=== PATIENT | male | born 1990 | race African-American/Black ===

== ENCOUNTER 2018-10-26 11:23 | Emergency (ER) | payer OTHER ==
[~2018-10-26] VITALS: Ht 188 cm; Wt 93.0 kg
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
[2018-10-26] MEDS ORDERED: NAPR-1071 PO (13:10)
[2018-10-26] MEDS ORDERED: METH-313 PO (13:10)
[2018-10-26 13:19] VITALS: BP 122/81
== END 2018-10-26 13:19 | disposition home or self-care (01) ==
LOC: ER 11:25
DX: S39.012A Strain of muscle, fascia and tendon of lower back, initial encounter (principal); F17.210 Nicotine dependence, cigarettes, uncomplicated; V40.6XXA Car passenger injured in collision with pedestrian or animal in traffic accident, initial encounter
CPT/HCPCS: 72131

== ENCOUNTER 2019-06-08 21:34 | Emergency (ER) | payer SELFPAY ==
[~2019-06-08] VITALS: Ht 188 cm; Wt 89.4 kg
[~2019-06-08 21:34] MED LIST: METH-313 PO; NAPR-1071 PO
[2019-06-08] MEDS ORDERED: HYOSCYAMINE 0.125 MG (LEVSIN) TAB PO ONE (22:00)
--- NOTE | 2019-06-08 22:02 | ED Abdominal Pain ---
General Chief Complaint: Abdominal/GI Problems Stated Complaint: ABD PAIN Nursing Triage Note: constant mid abdominal cramping pain. Sepsis Screen: No Definite Risk Source of Information: Patient History of Present Illness Date Seen by Provider: Jun 08, 2019 Time Seen by Provider: 21:40 Initial Comments PT ARRIVES VIA POV C/O EPIGASTRIC PAIN SINCE 2099 LAST NIGHT--YESTERDAY WAS THANKSGIVING PAIN IS CRAMPING TYPE PAIN , AND COMES AND GOES, AND IS NOT PRESENT NOW NO NAUSEA/VOMITING LAST BM WAS YESTERDAY OR THE DAY BEFORE--PT NORMALLY HAS BM EVERY DAY NO FEVER NO URINARY SYMPTOMS NO RELIEF WITH IBUPROFEN AND BC POWDER TODAY PT HAS NOT EATEN AT ALL TDAY NO HISTORY OF GI PROBLEMS OR PRIOR ABDOMINAL SURGERY PT STATES HE DID USE ECSTASY YESTERDAY, AND USES ON FAIRLY REGULAR BASIS, AND HAS NOT CAUSED GI PROBLEMS IN THE PAST PCP: NONE Allergies and Home Medications Allergies Coded Allergies: No Known Drug Allergies (Unverified , 10/26/18) Home Medications Hyoscyamine Sulfate 0.125 Mg Tab.subl, 1-2 TAB SL Q4H Prescribed by: MANASA LEWIS on 06/08/192357 Pantoprazole Sodium 40 Mg Tablet.dr, 40 MG PO DAILY Prescribed by: MANASA LEWIS on 06/08/19 270 Patient Home Medication List Home Medication List Reviewed: Yes Review of Systems Review of Systems Constitutional: no symptoms reported; No chills, No diaphoresis, No fever EENTM: No Symptoms Reported Respiratory: No Symptoms Reported Cardiovascular: No Symptoms Reported Gastrointestinal: See HPI, Abdominal Pain, Constipated; Denies Nausea; Poor Appetite; Denies Vomiting Genitourinary: No Symptoms Reported Musculoskeletal: no symptoms reported; No back pain Skin: no symptoms reported Psychiatric/Neurological: No Symptoms Reported Endocrine: No Symptoms Reported Hematologic/Lymphatic: No Symptoms Reported Past Xvkkxzs-Tbrmtl-Eazvwa Hx Patient Social History Alcohol Use: Denies Use Recreational Drug Use: Yes (ECSTASY, THC) Drug of Choice: ECSTASY, THC Smoking Status: Current Everyday Smoker (1 PPD) Type Used: Cigarettes (1 PPD) 2nd Hand Smoke Exposure: Yes Recent Foreign Travel: No Contact w/Someone Who Travel: No Recent Infectious Disease Expo: No Recent Hopitalizations: No Physical Abuse: No Sexual Abuse: No Mistreated: No Fear: No Immunizations Up To Date Tetanus Booster (TDap): Unknown Seasonal Allergies Seasonal Allergies: No Past Medical History Surgeries: No Respiratory: No Cardiac: No Neurological: No Genitourinary: No Gastrointestinal: No Musculoskeletal: No Endocrine: No HEENT: No Cancer: No Psychosocial: No Integumentary: No Blood Disorders: No Physical Exam Vital Signs Vital Signs - First Documented 06/08/19 21:36 Temp 36.4 Pulse 82 Resp 18 B/P (MAP) 138/94 (109) Pulse Ox 99 O2 Delivery Room Air Capillary Refill : Less Than 3 Seconds Height/Weight/BMI Height: 6'2.00" Weight: 205lbs. oz. 92.920093ta; 25.00 BMI Method:Stated General Appearance: WD/WN, no apparent distress, other (DOES NOT APPEAR TO BE IN ANY DISCOMFORT OR DISTRESS, WALKS UPRIGHT AND MOVES VERY QUICKLY WITHOUT DIFFICULTY) Neck: normal inspection Respiratory: normal breath sounds, no respiratory distress, no accessory muscle use Cardiovascular: regular rate, rhythm, no edema, no JVD, no murmur Gastrointestinal: normal bowel sounds, non tender, soft, no organomegaly, no pulsatile mass Back: no CVA tenderness Neurologic/Psychiatric: bag sorter II-XII nml as tested, no motor/sensory deficits, alert, normal mood/affect, oriented x 3 Skin: normal color (PT IS BLACK), warm/dry, tattoos/piercings (EXTENSIVE TATTOOS) Progress/Results/Core Measures Results/Orders Lab Results Laboratory Tests Test 06/08/19 21:48 06/08/19 21:55 Range/Units Urine Color YELLOW Urine Clarity CLEAR Urine pH 7.0 5-9 Urine Specific [place] 1.025 H 1.016-1.022 Urine Protein NEGATIVE NEGATIVE Urine Glucose (UA) NEGATIVE NEGATIVE Urine Ketones NEGATIVE NEGATIVE Urine Nitrite NEGATIVE NEGATIVE Urine Bilirubin NEGATIVE NEGATIVE Urine Urobilinogen 0.2 < = 1.0 MG/DL Urine Leukocyte Esterase NEGATIVE NEGATIVE Urine RBC (Auto) NEGATIVE NEGATIVE Urine RBC NONE /HPF Urine WBC NONE /HPF Urine Crystals PRESENT H /LPF Urine Amorphous Sediment MOD YARA PHOSPHATE H /LPF Urine Bacteria NEGATIVE /HPF Urine Casts NONE /LPF Urine Mucus MODERATE H /LPF Urine Culture Indicated NO Urine Opiates Screen NEGATIVE NEGATIVE Urine Oxycodone Screen NEGATIVE NEGATIVE Urine Methadone Screen NEGATIVE NEGATIVE Urine Propoxyphene Screen NEGATIVE NEGATIVE Urine Barbiturates Screen NEGATIVE NEGATIVE Ur Tricyclic Antidepressants Screen NEGATIVE NEGATIVE Urine Phencyclidine Screen NEGATIVE NEGATIVE Urine Amphetamines Screen POSITIVE H NEGATIVE Urine Methamphetamines Screen NEGATIVE NEGATIVE Urine Benzodiazepines Screen NEGATIVE NEGATIVE Urine Cocaine Screen NEGATIVE NEGATIVE Urine Cannabinoids Screen POSITIVE H NEGATIVE White Blood Count 6.2 4.3-11.0 10^3/uL Red Blood Count 5.11 4.35-5.85 10^6/uL Hemoglobin 15.7 13.3-17.7 G/DL Hematocrit 44 40-54 % Mean Corpuscular Volume 86 80-99 FL Mean Corpuscular Hemoglobin 31 25-34 PG Mean Corpuscular Hemoglobin Concent 36 32-36 G/DL Red Cell Distribution Width 14.3 10.0-14.5 % Platelet Count 280 130-400 10^3/uL Mean Platelet Volume 9.8 7.4-10.4 FL Neutrophils (%) (Auto) 57 42-75 % Lymphocytes (%) (Auto) 31 12-44 % Monocytes (%) (Auto) 10 0-12 % Eosinophils (%) (Auto) 1 0-10 % Basophils (%) (Auto) 0 0-10 % Neutrophils # (Auto) 3.5 1.8-7.8 X 10^3 Lymphocytes # (Auto) 2.0 1.0-4.0 X 10^3 Monocytes # (Auto) 0.6 0.0-1.0 X 10^3 Eosinophils # (Auto) 0.1 0.0-0.3 10^3/uL Basophils # (Auto) 0.0 0.0-0.1 10^3/uL Sodium Level 136 135-145 MMOL/L Potassium Level 4.4 3.6-5.0 MMOL/L Chloride Level 102 98-107 MMOL/L Carbon Dioxide Level 25 21-32 MMOL/L Anion Gap 9 5-14 MMOL/L Blood Urea Nitrogen 10 7-18 MG/DL Creatinine 1.17 0.60-1.30 MG/DL Estimat Glomerular Filtration Rate > 60 BUN/Creatinine Ratio 9 Glucose Level 98 70-105 MG/DL Calcium Level 9.6 8.5-10.1 MG/DL Corrected Calcium 9.3 8.5-10.1 MG/DL Total Bilirubin 1.5 H 0.1-1.0 MG/DL Aspartate Amino Transf (AST/SGOT) 14 5-34 U/L Alanine Aminotransferase (ALT/SGPT) 21 0-55 U/L Alkaline Phosphatase 76 40-136 U/L Total Protein 7.4 6.4-8.2 GM/DL Albumin 4.4 3.2-4.5 GM/DL Amylase Level 70 25-125 U/L Lipase 12 8-78 U/L Salicylates Level < 5.0 L 5.0-20.0 MG/DL Serum Alcohol < 10 <10 MG/DL My Orders Orders - MANASA LEWIS DO Ed Iv/Invasive Line Start (06/08/19 21:48) Alcohol (06/08/19 21:48) Amylase (06/08/19 21:48) Cbc With Automated Diff (06/08/19 21:48) Comprehensive Metabolic Panel (06/08/19 21:48) Drug Screen Stat (Urine) (06/08/19 21:48) Lipase (06/08/19 21:48) Salicylate (06/08/19 21:48) Ua Culture If Indicated (06/08/19 21:48) Ct Abdomen/Pelvis W (06/08/19 21:48) Acute Abd Series (06/08/19 21:48) Hyoscyamine Sl Tablet (Levsin Sl Tablet) (06/08/19 22:00) Iohexol Injection (Omnipaque 350 Mg/Ml 1 (06/08/19 22:30) Ns (Ivpb) (Sodium Chloride 0.9% Ivpb Bag (06/08/19 22:30) Ketorolac Injection (Toradol Injection) (06/09/19 00:00) Medications Given in ED Current Medications Medications Dose Ordered Sig/Cassandra Route Start Time Stop Time Status Last Admin Dose Admin Hyoscyamine Sulfate 0.25 mg ONCE ONCE PO 06/08/19 22:00 06/08/19 22:01 DC 06/08/19 21:58 0.25 MG Iohexol 100 ml ONCE ONCE IV 06/08/19 22:30 06/08/19 23:08 DC 06/08/19 22:31 100 ML Ketorolac Tromethamine 30 mg ONCE ONCE IVP 06/09/19 00:00 06/09/19 00:01 DC 06/09/19 00:01 30 MG Sodium Chloride 80 ml ONCE ONCE IV 06/08/19 22:30 06/08/19 23:08 DC 06/08/19 22:32 80 ML Vital Signs/I&O 06/08/19 06/08/19 06/09/19 21:36 23:22 00:00 Temp 36.4 36.5 Pulse 82 78 76 Resp 18 16 16 B/P (MAP) 138/94 (109) 136/84 128/71 (109) Pulse Ox 99 99 100 O2 Delivery Room Air Room Air Blood Pressure Mean: 109 POS Progress Progress Note : Progress Note UNEVENTFUL ER STAY PAIN IMPROVED AT DISMISSAL Diagnostic Imaging Comments ABDOMEN XRAYS--NO ACUTE PROCESS, PENDING RADIOLOGIST REVIEW CT ABDOMEN/PELVIS--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 [place], HE ADVISES TO SEND PT TO 0--CALLED [facility]. PAGING GENERAL SURGEON / VASCULAR SURGEON INDUSTRIAL TRUCK DRIVER 2335--[facility] CALLED BACK. DR. JOHANNE POSADA, VASCULAR SURGEON INDUSTRIAL TRUCK DRIVER, ADVISES THAT PT MAY FOLLOW UP WITH [facility] FOR FURTHER OUTPATIENT WORK UP. Impression Primary Impression: Epigastric abdominal pain Additional Impressions: Celiac artery compression syndrome Illicit drug use Disposition: HOME, SELF-CARE Condition: Improved Departure-Patient Inst. Referrals: NO,LOCAL PHYSICIAN (PCP) Primary Care Physician Patient Instructions: Acute Abdomen (Belly Pain), Adult (DC), Drug Abuse and Drug Addiction (DC) Add. Discharge Instructions: NO DRUGS!! AVOID ALL STIMULANTS--NO CAFFEINE, NO SMOKING, NO DECONGESTANTS, ETC. NO ASPIRIN OR NSAIDS SUCH IBUPROFEN OR NAPROXEN BLAND DIET--NO SPICY, GREASY, ACIDIC FOOD OR DRINK FOLLOW UP WITH [facility]/ DR. JOHANNE POSADA FOR FURTHER CARE--CALL ON TUESDAY TO ARRANGE FOLLOW UP APPOINTMENT [phone] All discharge instructions reviewed with patient and/or family. Voiced understanding. Scripts Hyoscyamine Sulfate (Levsin-Sl) 0.125 Mg Tab.subl 1-2 TAB SL Q4H for Abdominal Pain, #15 TAB Prov: MANASA LEWIS DO 06/08/19 Pantoprazole Sodium (Protonix) 40 Mg Tablet.dr 40 MG PO DAILY, #15 TAB Prov: MANASA LEWIS DO 06/08/19 AMNASA LEWIS DO Jun 08, 2019 22:02 POS
[2019-06-08 22:03] LABS: BASOPHILS % (AUTO) 0 % (0-10); EOSINOPHILS # (AUTO) 0.1 10^3/uL (0.0-0.3); EOSINOPHILS % (AUTO) 1 % (0-10); HEMATOCRIT 44 % (40-54); HEMOGLOBIN 15.7 G/DL (13.3-17.7); LYMPHOCYTES % (AUTO) 31 % (12-44); MEAN CORPUSCULAR HEMOGLOBIN 31 PG (25-34); MEAN CORPUSCULAR HGB CONC 36 G/DL (32-36); MEAN CORPUSCULAR VOLUME 86 FL (80-99); MEAN PLATELET VOLUME 9.8 FL (7.4-10.4); MONOCYTES # (AUTO) 0.6 X 10^3 (0.0-1.0); MONOCYTES % (AUTO) 10 % (0-12); NEUTROPHILS # (AUTO) 3.5 X 10^3 (1.8-7.8); NEUTROPHILS % (AUTO) 57 % (42-75); PLATELET COUNT 280 10^3/uL (130-400); RED CELL DISTRIBUTION WIDTH 14.3 % (10.0-14.5); WHITE BLOOD COUNT 6.2 10^3/uL (4.3-11.0)
[2019-06-08 22:14] LABS: BILIRUBIN,URINE NEGATIVE (NEGATIVE); CLARITY,URINE CLEAR; COLOR,URINE YELLOW; GLUCOSE, URINE (UA) NEGATIVE (NEGATIVE); KETONES,URINE NEGATIVE (NEGATIVE); LEUKOCYTE ESTERASE ,URINE NEGATIVE (NEGATIVE); NITRITE,URINE NEGATIVE (NEGATIVE); PROTEIN,URINE NEGATIVE (NEGATIVE)
[2019-06-08 22:16] LABS: AMORPHOUS SEDIMENT,UR MOD AMOR PHOSPHATE /LPF; BACTERIA,URINE NEGATIVE /HPF
[2019-06-08 22:18] LABS: AMPHETAMINE SCREEN, URINE POSITIVE (NEGATIVE); BARBITURATE SCREEN URINE NEGATIVE (NEGATIVE); BENZODIAZEPINES SCREEN URINE NEGATIVE (NEGATIVE); CANNABINOID SCREEN, URINE POSITIVE (NEGATIVE); COCAINE SCREEN URINE NEGATIVE (NEGATIVE); METHADONE STAT NEGATIVE (NEGATIVE); METHAMPHETAMINE SCREEN URINE S NEGATIVE (NEGATIVE); OPIATE SCREEN URINE NEGATIVE (NEGATIVE); OXYCODONE STAT NEGATIVE (NEGATIVE); PROPOXYPHENE STAT NEGATIVE (NEGATIVE); TRICYCLIC ANTIDEPRESSANTS SCRE NEGATIVE (NEGATIVE)
[2019-06-08 22:22] LABS: ALANINE AMINOTRANSFERASE 21 U/L (0-55); ALBUMIN 4.4 GM/DL (3.2-4.5); ALKALINE PHOSPHATASE 76 U/L (40-136); AMYLASE 70 U/L (25-125); BILIRUBIN,TOTAL 1.5 MG/DL (0.1-1.0); BUN/CREATININE RATIO 9; CALCIUM 9.6 MG/DL (8.5-10.1); CARBON DIOXIDE 25 MMOL/L (21-32); CHLORIDE 102 MMOL/L (98-107); CREATININE SERUM 1.17 MG/DL (0.60-1.30); GFR ESTIMATED > 60; GLUCOSE 98 MG/DL (70-105); LIPASE 12 U/L (8-78); POTASSIUM 4.4 MMOL/L (3.6-5.0); SALICYLATE < 5.0 MG/DL (5.0-20.0); SODIUM 136 MMOL/L (135-145); TOTAL PROTEIN 7.4 GM/DL (6.4-8.2)
[2019-06-08] MEDS ORDERED: NS 100 ML (IVPB) BAG IV ONE (22:30)
[2019-06-08] MEDS ORDERED: IOHEXOL 350 MG/ML 100 ML (OMNIPAQUE 350) VIAL IV ONE (22:30)
[2019-06-08] MEDS ORDERED: HYOS0.1283 SL (23:58)
[2019-06-08] MEDS ORDERED: PANT40TA2 PO (23:58)
[2019-06-09] VITALS: BP 128/71
[2019-06-09] MEDS ORDERED: KETOROLAC 30 MG/ML VIAL IVP ONE
--- NOTE | 2019-06-09 06:55 | Diagnostic Imaging Report ---
PROCEDURE: CT abdomen and pelvis with contrast. TECHNIQUE: Multiple contiguous axial images were obtained through the abdomen and pelvis after administration of intravenous contrast. Auto Exposure Controls were utilized during the CT exam to meet ALARA standards for radiation dose reduction. INDICATION: Upper abdominal pain and cramping. COMPARISON: None FINDINGS: There is a severe stenosis of the celiac axis origin possibly due to arcuate ligament syndrome. There is no vascular thrombosis or plaque formation. No solid organ or bowel ischemia is seen. The aorta, SMA, RAJ and renal arteries are otherwise unremarkable. Lung bases are clear. Gallbladder and small bowel are normal. There is some slight constipation. No bowel obstruction seen. There is some nonspecific prostate enlargement. Distal ureters and urinary bladder are normal. Osseous structures are age-appropriate. IMPRESSION: 1. 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 2. No solid organ or bowel ischemia. 3. Nonspecific prostate enlargement. 4. Mild constipation. Agree with preliminary report. Dictated by: Dictated on workstation # [id number]
--- NOTE | 2019-06-09 06:56 | Diagnostic Imaging Report ---
Indication: Abdominal pain. Comparison: None. Findings: Acute abdominal series demonstrates normal chest. There is some slight constipation throughout the colon. There is no obstruction, ileus or free air. Osseous structures are normal. Impression: Slight constipation. Dictated by: Dictated on workstation # [id number]
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
== END 2019-06-09 00:02 | disposition home or self-care (01) ==
LOC: EDUNIT# 21:34 → ER 21:35
DX: I77.4 Celiac artery compression syndrome (principal); F15.10 Other stimulant abuse, uncomplicated; F12.10 Cannabis abuse, uncomplicated; F17.210 Nicotine dependence, cigarettes, uncomplicated
CPT/HCPCS: 36415; 74022; 74177; 80053; 80306; 80320; 80329; 81000; 82150; 83690; 85025; 96374

== ENCOUNTER 2020-05-09 14:45 | Emergency (ER) | payer SELFPAY ==
[~2020-05-09] VITALS: Ht 187.9 cm; Wt 90.7 kg
[~2020-05-09 14:45] MED LIST changes: +HYOS0.1283 SL; +PANT40TA2 PO
[2020-05-09] MEDS ORDERED: fentaNYL INJECTION 100 MCG/2 ML AMP ONE ×2 (14:52→15:12)
[2020-05-09] MEDS: fentaNYL INJECTION 100 MCG/2 ML AMP IVP ONE ×2 (14:59→15:14)
[2020-05-09 15:05] LABS: HEMOGLOBIN 15.5 g/dL (13.3-17.7); MEAN PLATELET VOLUME 11.1 fL (9.0-12.2); WHITE BLOOD COUNT 7.4 10^3/uL (4.3-11.0)
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
[2020-05-09] MEDS ORDERED: ceFAZolin INJECTION 1,000 MG in WATER (STERILE) FOR INJECTION 10 ML IV ONE (15:15)
[2020-05-09] MEDS ORDERED: fentaNYL INJECTION 100 MCG/2 ML AMP IVP ONE (15:15)
[2020-05-09] MEDS ORDERED: TETANUS,DIPTH,PERTUSS P/F (BOOSTRIX) 0.5 ML VIAL IM ONE (15:15)
[2020-05-09 15:17] LABS: ALBUMIN 4.5 GM/DL (3.2-4.5); CHLORIDE 103 MMOL/L (98-107); POTASSIUM 3.9 MMOL/L (3.6-5.0); SODIUM 137 MMOL/L (135-145)
[2020-05-09 15:18] LABS: CALCIUM 9.3 MG/DL (8.5-10.1)
[2020-05-09 15:20] LABS: CARBON DIOXIDE 21 MMOL/L (21-32); GLUCOSE 115 MG/DL (70-105); TOTAL PROTEIN 7.6 GM/DL (6.4-8.2)
[2020-05-09 15:21] LABS: BILIRUBIN,TOTAL 1.3 MG/DL (0.1-1.0)
[2020-05-09 15:23] LABS: ALKALINE PHOSPHATASE 66 U/L (40-136); CREATININE SERUM 1.42 MG/DL (0.60-1.30); GFR ESTIMATED > 60
[2020-05-09 15:24] LABS: BUN/CREATININE RATIO 5
[2020-05-09 15:25] LABS: BILIRUBIN,DIRECT 0.4 MG/DL (0.0-0.3); BILIRUBIN,INDIRECT 0.9 MG/DL
[2020-05-09 15:26] LABS: ALANINE AMINOTRANSFERASE 50 U/L (0-55)
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
[2020-05-09] MEDS ORDERED: fentaNYL INJECTION 100 MCG/2 ML AMP IVP PRN (15:30)
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
[2020-05-09] MEDS ORDERED: morphine INJ 10 MG/ML 1ML (SYR OR VIAL) ONE ×2 (15:49→16:01)
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
[2020-05-09] MEDS ORDERED: morphine INJ 4 MG/ML 1 ML (VIAL/SYRINGE) IVP PRN (16:00)
[2020-05-09 16:06] VITALS: BP 141/98
[2020-05-09] MEDS ORDERED: morphine INJ 10 MG/ML 1ML (SYR OR VIAL) IVP STA (16:06)
== END 2020-05-09 16:06 ==
LOC: EDUNIT# 14:51 → ER 14:52
DX: S72.331A Displaced oblique fracture of shaft of right femur, initial encounter for closed fracture (principal); Z23 Encounter for immunization; Z77.22 Contact with and (suspected) exposure to environmental tobacco smoke (acute) (chronic); X93.XXXA Assault by handgun discharge, initial encounter; Y92.096 Garden or yard of other non-institutional residence as the place of occurrence of the external cause
CPT/HCPCS: 71045; 72170; 73552; 80048; 80076; 85027; 86850; 86900; 86901; 93041; 99285; G0480; 36415; 80320; 90715

== ENCOUNTER 2020-07-30 07:43 | Emergency (ER) | payer SELFPAY ==
[~2020-07-30] VITALS: Ht 188 cm; Wt 91.0 kg
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
[2020-07-30 08:22] VITALS: BP 145/89
== END 2020-07-30 08:22 | disposition home or self-care (01) ==
LOC: EDUNIT# 07:43 → ER 07:46
DX: R20.2 Paresthesia of skin (principal); Z77.22 Contact with and (suspected) exposure to environmental tobacco smoke (acute) (chronic)
CPT/HCPCS: 99283

== ENCOUNTER 2022-07-30 21:20 | Inpatient (IN) | payer SELFPAY ==
[~2022-07-30] VITALS: Ht 188 cm; Wt 106.6 kg
[2022-07-30] MEDS ORDERED: PIPERACILLIN SODIUM/TAZOBACTAM 4.5 GM in NS (IVPB) 100 ML IV ONE (21:45)
[2022-07-30] MEDS ORDERED: LACTATED RINGERS 1,000 ML IV ONE (21:45)
[2022-07-30 21:48] LABS: BASOPHILS % (AUTO) 0 % (0-10); EOSINOPHILS # (AUTO) 0.2 10^3/uL (0.0-0.3); EOSINOPHILS % (AUTO) 2 % (0-10); HEMATOCRIT 42 % (40-54); HEMOGLOBIN 14.2 g/dL (13.3-17.7); LYMPHOCYTES # (AUTO) 2.4 10^3/uL (1.0-4.0); LYMPHOCYTES % (AUTO) 33 % (12-44); MEAN CORPUSCULAR HEMOGLOBIN 30 pg (25-34); MEAN CORPUSCULAR HGB CONC 34 g/dL (32-36); MEAN CORPUSCULAR VOLUME 88 fL (80-99); MEAN PLATELET VOLUME 9.8 fL (9.0-12.2); MONOCYTES # (AUTO) 0.4 10^3/uL (0.0-1.0); MONOCYTES % (AUTO) 5 % (0-12); NEUTROPHILS # (AUTO) 4.3 10^3/uL (1.8-7.8); NEUTROPHILS % (AUTO) 60 % (42-75); PLATELET COUNT 304 10^3/uL (130-400); WHITE BLOOD COUNT 7.3 10^3/uL (4.3-11.0)
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
[2022-07-30 22:01] LABS: ALBUMIN 3.9 GM/DL (3.2-4.5)
--- NOTE | 2022-07-30 22:01 | Diagnostic Imaging Report ---
INDICATION: Foot pain. EXAMINATION: Right foot, 07/30/2022. FINDINGS: There is no fracture or dislocation. Subcutaneous air is noted overlying the base of the 5th metatarsal, presumably due to an ulcer or skin wound. Infection secondary to a gas-forming organism should be clinically excluded. No underlying acute osseous abnormality is appreciated. IMPRESSION: Soft tissue abnormality as detailed above with no underlying acute osseous process. Dictated by: Dictated on workstation # [id number]
[2022-07-30 22:02] LABS: POTASSIUM 3.6 MMOL/L (3.6-5.0)
[2022-07-30 22:03] LABS: CALCIUM 9.1 MG/DL (8.5-10.1)
[2022-07-30 22:04] LABS: TOTAL PROTEIN 7.6 GM/DL (6.4-8.2)
[2022-07-30 22:06] LABS: BILIRUBIN,TOTAL 0.7 MG/DL (0.1-1.0)
[2022-07-30] MEDS: VANCOMYCIN INJECTION 1,000 MG in NS (IVPB) 250 ML IV SCH ×2 (22:06→23:00)
[2022-07-30 22:08] LABS: CREATININE SERUM 1.41 MG/DL (0.60-1.30)
[2022-07-30 22:09] LABS: FIBRIN DEGRADATION PRODUCTS 0.08 UG/ML (0.00-0.49); PROTHROMBIN TIME PATIENT 13.7 SEC (12.2-14.7)
[2022-07-30 22:11] LABS: ERYTHROCYTE SEDIMENTATION RATE 5 MM/HR (0-15)
[2022-07-30] MEDS ORDERED: ACETAMINOPHEN 500 MG TAB (TYLENOL) PO PRN (23:45)
[2022-07-30] MEDS ORDERED: ONDANSETRON 4 MG/2 ML (SDV) Z0FRAN IV PRN (23:45)
[2022-07-30] MEDS ORDERED: fentaNYL INJ 100 MCG/2 ML AMP IV PRN (23:45)
[2022-07-30] MEDS ORDERED: IBUPROFEN 800 MG (MOTRIN) TAB PO PRN (23:45)
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
[2022-07-31] VITALS (13 sets, daily range): BP systolic 124–154; BP diastolic 76–95
[2022-07-31] MEDS: LACTATED RINGERS 1,000 ML IV SCH ×2 (00:30→04:32)
[2022-07-31 01:53] LABS: BILIRUBIN,URINE NEGATIVE (NEGATIVE); CLARITY,URINE CLEAR; COLOR,URINE YELLOW; GLUCOSE, URINE (UA) NEGATIVE (NEGATIVE); KETONES,URINE NEGATIVE (NEGATIVE); LEUKOCYTE ESTERASE ,URINE NEGATIVE (NEGATIVE); NITRITE,URINE NEGATIVE (NEGATIVE); PROTEIN,URINE NEGATIVE (NEGATIVE)
[2022-07-31 02:22] LABS: BACTERIA,URINE NEGATIVE /HPF
[2022-07-31 02:25] LABS: AMPHETAMINE SCREEN, URINE POSITIVE (NEGATIVE); BARBITURATE SCREEN URINE NEGATIVE (NEGATIVE); CANNABINOID SCREEN, URINE NEGATIVE (NEGATIVE); COCAINE SCREEN URINE NEGATIVE (NEGATIVE); OPIATE SCREEN URINE NEGATIVE (NEGATIVE)
[2022-07-31 02:26] LABS: BENZODIAZEPINES SCREEN URINE POSITIVE (NEGATIVE); METHADONE STAT NEGATIVE (NEGATIVE); OXYCODONE STAT NEGATIVE (NEGATIVE); PROPOXYPHENE STAT NEGATIVE (NEGATIVE); TRICYCLIC ANTIDEPRESSANTS SCRE NEGATIVE (NEGATIVE)
[2022-07-31 05:16] LABS: BASOPHILS % (AUTO) 0 % (0-10); EOSINOPHILS # (AUTO) 0.2 10^3/uL (0.0-0.3); EOSINOPHILS % (AUTO) 2 % (0-10); HEMATOCRIT 39 % (40-54); HEMOGLOBIN 13.2 g/dL (13.3-17.7); LYMPHOCYTES # (AUTO) 2.8 10^3/uL (1.0-4.0); LYMPHOCYTES % (AUTO) 41 % (12-44); MEAN CORPUSCULAR HEMOGLOBIN 30 pg (25-34); MEAN CORPUSCULAR HGB CONC 34 g/dL (32-36); MEAN CORPUSCULAR VOLUME 86 fL (80-99); MEAN PLATELET VOLUME 10.2 fL (9.0-12.2); MONOCYTES # (AUTO) 0.5 10^3/uL (0.0-1.0); MONOCYTES % (AUTO) 7 % (0-12); NEUTROPHILS # (AUTO) 3.4 10^3/uL (1.8-7.8); NEUTROPHILS % (AUTO) 50 % (42-75); PLATELET COUNT 270 10^3/uL (130-400); WHITE BLOOD COUNT 6.9 10^3/uL (4.3-11.0)
[2022-07-31 05:58] LABS: ALBUMIN 3.2 GM/DL (3.2-4.5); BILIRUBIN,TOTAL 0.7 MG/DL (0.1-1.0); CALCIUM 8.4 MG/DL (8.5-10.1); CREATININE SERUM 1.11 MG/DL (0.60-1.30); POTASSIUM 3.6 MMOL/L (3.6-5.0); TOTAL PROTEIN 6.2 GM/DL (6.4-8.2)
[2022-07-31] MEDS: PIPERACILLIN SODIUM/TAZOBACTAM 4.5 GM in NS (IVPB) 100 ML IV SCH ×3 (06:22→21:41)
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
[2022-07-31] MEDS ORDERED: diphenhydrAMINE 50 MG/ML INJ (BENADRYL) IVP PRN (07:00)
[2022-07-31] MEDS ORDERED: MILK OF MAGNESIA 400 MG/5 ML 30 ML UDC PO PRN (07:00)
[2022-07-31] MEDS ORDERED: ACETAMINOPHEN 325 MG TABLET PO PRN (07:00)
[2022-07-31] MEDS ORDERED: diphenhydrAMINE 25 MG TAB (BENADRYL) PO PRN (07:00)
[2022-07-31] MEDS ORDERED: polyethylene glycoL POWDER 17 GM (MIRALAX) PACK PO PRN (07:00)
[2022-07-31] MEDS ORDERED: LACTULOSE SYRUP 10GM/15ML (ENULOSE) 30ML UDC PO PRN (07:00)
[2022-07-31] MEDS ORDERED: MELATONIN 3 MG TABLET PO PRN (07:00)
[2022-07-31] MEDS ORDERED: CALCIUM CARBONATE 500 MG (TUMS) TAB.CHEW PO PRN (07:00)
[2022-07-31] MEDS ORDERED: ONDANSETRON 4 MG (ZOFRAN) ORAL DISSOLVE TAB PO PRN (07:00)
[2022-07-31] MEDS ORDERED: ANTACID SUSP 30 ML UDC (MYLANTA) PO PRN (07:00)
[2022-07-31] MEDS ORDERED: BISACODYL 10 MG SUPP (DULCOLAX) PR PRN (07:00)
[2022-07-31] MEDS ORDERED: ONDANSETRON 4 MG/2 ML (SDV) Z0FRAN IV PRN (07:00)
--- NOTE | 2022-07-31 07:07 | Diagnostic Imaging Report ---
PROCEDURE: CT right lower extremity without contrast. TECHNIQUE: Axially acquired CT was obtained through the right lower extremity without intravenous contrast. Coronal and sagittal reformations were also performed. Auto Exposure Controls were utilized during the CT exam to meet ALARA standards for radiation dose reduction. INDICATION: Cellulitis of the right foot. COMPARISON: Right foot radiographs of 07/30/2022 FINDINGS: Moderate subcutaneous edema and swelling throughout the ankle and foot. No soft tissue gas is present. No loculated fluid collection that would suggest drainable abscess. There are no areas of periosteal reaction or erosions within the foot. Alignment is normal. IMPRESSION: 1. No soft tissue gas to indicate necrotizing fasciitis. 2. Moderate swelling throughout the right foot may be due to bland edema or cellulitis. No drainable abscess. 3. No CT features of osteomyelitis. 4. Findings are in agreement with the preliminary report. Dictated by: Dictated on workstation # [id number]
[2022-07-31] MEDS: ENOXAPARIN 40 MG/0.4 ML (LOVENOX) SYR SC SCH (08:09)
[2022-07-31] MEDS: SENNOSIDES 8.6 MG (SENOKOT) TAB PO SCH ×2 (08:17→21:39)
[2022-07-31] MEDS: DOCUSATE SODIUM 100 MG (COLACE) CAP PO SCH ×2 (08:17→21:39)
[2022-07-31] MEDS ORDERED: LACTATED RINGERS 1,000 ML IV SCH (08:30)
--- NOTE | 2022-07-31 09:08 | Progress Note - Surgery ---
SONIA NGUYEN 07/31/22 0908: Subjective Date Seen by a Provider: Jul 31, 2022 Time Seen by a Provider: 08:15 Subjective/Events-last exam The patient is lying in bed awake at time of evaluation. The patient reports the swelling in his right leg has improved since yesterday, though he is still unabl e to gauge pain due to his chronic numbness. The patient states he has been NPO since midnight. He denies any chills, chest pain, abdominal pain, fever, or chills. Review of Systems General: No Chills Pulmonary: No Dyspnea Cardiovascular: No: Chest Pain Gastrointestinal: No: Abdominal Pain Neurological: Numbness (right leg) Focused Exam Lactate Level 07/30/22 21:32: Lactic Acid Level 0.75 Objective Exam Vital Signs Date Time Temp Pulse Resp B/P (MAP) Pulse Ox O2 Delivery O2 Flow Rate FiO2 07/31/22 07:48 36.7 83 18 148/87 (107) 97 Room Air 07/31/22 07:00 81 07/31/22 04:26 36.7 94 18 133/82 (99) 96 Room Air 07/31/22 01:03 100 07/31/22 00:49 Room Air 07/31/22 00:11 37.2 82 18 142/85 (104) 99 Room Air 07/30/22 23:03 36.2 89 16 132/80 99 Room Air 07/30/22 21:24 36.0 109 16 134/78 (96) 97 Room Air I & O 07/31/22 07:00 Intake Total 3550 ml Output Total 600 ml Balance 2950 ml Capillary Refill : Less Than 3 Seconds General Appearance: No Apparent Distress, WD/WN HEENT: PERRL/EOMI, Pharynx Normal Neck: Non Tender, Supple Respiratory: Lungs Clear, Normal Breath Sounds, No Accessory Muscle Use, No Respiratory Distress Cardiovascular: Regular Rate, Rhythm, No Murmur, Normal Peripheral Pulses Peripheral Pulses: 2+ Dorsalis Pedis (R), 2+ Left Dors-Pedis (L), 2+ Radial Pulses (R), 2+ Radial Pulses (L) Gastrointestinal: non tender Extremity: No Calf Tenderness, No Pedal Edema, Other (ulceration to the lateral aspect of the plantar surface of the right midfoot. ulceration is slighly erythematous.) Neurologic/Psychiatric: Alert, Oriented x3, Motor Weakness (right leg, 2/5 strength to the foot and toes), Sensory Deficit (right leg) Skin: Warm/Dry, Other (scaling to the lateral right lower leg extending from just superior to the lateral malleolus to the mid-calf) Results Lab Laboratory Tests 07/30/22 21:32: White Blood Count 7.3, Red Blood Count 4.78, Hemoglobin 14.2, Hematocrit 42, Mean Corpuscular Volume 88, Mean Corpuscular Hemoglobin 30, Mean Corpuscular Hemoglobin Concent 34, Red Cell Distribution Width 14.1, Platelet Count 304, Mean Platelet Volume 9.8, Immature Granulocyte % (Auto) 0, Neutrophils (%) (Au to) 60, Lymphocytes (%) (Auto) 33, Monocytes (%) (Auto) 5, Eosinophils (%) (Auto) 2, Basophils (%) (Auto) 0, Neutrophils # (Auto) 4.3, Lymphocytes # (Auto) 2.4, Monocytes # (Auto) 0.4, Eosinophils # (Auto) 0.2, Basophils # (Auto) 0.0, Immature Granulocyte # (Auto) 0.0, Erythrocyte Sedimentation Rate 5, Prothrombin Time 13.7, INR Comment 1.0, Activated Partial Thromboplast Time 32, D-Dimer 0.08, Sodium Level 137, Potassium Level 3.6, Chloride Level 104, Carbon Dioxide Level 25, Anion Gap 8, Blood Urea Nitrogen 9, Creatinine 1.41H, Estimat Glomerular Filtration Rate 68, BUN/Creatinine Ratio 6, Glucose Level 117H, Lactic Acid Level 0.75, Calcium Level 9.1, Corrected Calcium 9.2, Magnesium Level 2.0, Total Bilirubin 0.7, Aspartate Amino Transf (AST/SGOT) 21, Alanine Aminotransferase (ALT/SGPT) 39, Alkaline Phosphatase 89, C-Reactive Protein High Sensitivity 0.40, Total Protein 7.6, Albumin 3.9 07/31/22 04:21: White Blood Count 6.9, Red Blood Count 4.47, Hemoglobin 13.2L, Hematocrit 39L, Mean Corpuscular Volume 86, Mean Corpuscular Hemoglobin 30, Mean Corpuscular Hemoglobin Concent 34, Red Cell Distribution Width 13.8, Platelet Count 270, Mean Platelet Volume 10.2, Immature Granulocyte % (Auto) 0, Neutrophils (%) (Auto) 50, Lymphocytes (%) (Auto) 41, Monocytes (%) (Auto) 7, Eosinophils (%) (Auto) 2, Basophils (%) (Auto) 0, Neutrophils # (Auto) 3.4, Lymphocytes # (Auto) 2.8, Monocytes # (Auto) 0.5, Eosinophils # (Auto) 0.2, Basophils # (Auto) 0.0, Immature Granulocyte # (Auto) 0.0, Sodium Level 136, Potassium Level 3.6, Chloride Level 107, Carbon Dioxide Level 22, Anion Gap 7, Blood Urea Nitrogen 8, Creatinine 1.11, Estimat Glomerular Filtration Rate 90, BUN/Creatinine Ratio 7, Glucose Level 91, Calcium Level 8.4L, Corrected Calcium 9.0, Total Bilirubin 0.7, Aspartate Amino Transf (AST/SGOT) 16, Alanine Aminotransferase (ALT/SGPT) 33, Alkaline Phosphatase 66, Total Protein 6.2L, Albumin 3.2 Assessment/Plan Assessment/Plan Assessment/Plan Right foot Ulcer Neuropathy and sensation loss Right foot Mild anemia Patient has improvement to his right leg swelling but has persistent ulceration of the plantar surface of the right foot. Plan for debridement of this ulcer later today, likely will require a diabetic shoe for this foot. Continue pain control as needed, continue antibiotic regimen. Patient had HGB drop to 13.2 since last check, continue monitoring HGB and watch for signs of anemia. NASIM WARD DO 07/31/22 1215: Subjective Time Seen by a Provider: 09:41 Subjective/Events-last exam Pt seen and examined, no new changes. Review of Systems General: No Chills Pulmonary: No Dyspnea Cardiovascular: No: Chest Pain Gastrointestinal: No: Abdominal Pain Neurological: Numbness (right leg) Objective Exam General Appearance: No Apparent Distress, WD/WN HEENT: PERRL/EOMI, Pharynx Normal Respiratory: Lungs Clear, Normal Breath Sounds, No Accessory Muscle Use, No Respiratory Distress Cardiovascular: Regular Rate, Rhythm, No Murmur Gastrointestinal: non tender Extremity: No Pedal Edema, Other (ulceration to the lateral aspect of the plantar surface of the right midfoot. ulceration is slighly erythematous.) Neurologic/Psychiatric: Motor Weakness (right leg, 2/5 strength to the foot and toes), Sensory Deficit (right leg) Skin: Warm/Dry, Other (scaling to the lateral right lower leg extending from just superior to the lateral malleolus to the mid-calf) Assessment/Plan Assessment/Plan Assessment/Plan Right foot Ulcer Neuropathy and sensation loss Right foot Mild anemia Patient has improvement to his right leg swelling but has persistent ulceration of the plantar surface of the right foot. Plan for debridement of this ulcer later today, likely will require a diabetic shoe for this foot. Continue pain control as needed, continue antibiotic regimen. Patient had HGB drop to 13.2 since last check, continue monitoring HGB and watch for signs of anemia. Supervisory-Addendum Brief Verification & Attestation Participated in pt care: history, MDM, physical Personally performed: exam, history, MDM, supervision of care Care discussed with: Medical Student Procedures: n/a Verification and Attestation of Medical Student E/M Service A medical student performed and documented this service. I then reviewed and verified all information documented by the medical student and made modifications to such information, when appropriate. I personally performed a physical exam, medical decision making and then discussed any differences between the notes and made revisions as necessary to create one note. Nasim Ward , 07/31/22 , 12:15 SONIA NGUYEN Jul 31, 2022 09:08 NASIM WARD DO Jul 31, 2022 12:15
[2022-07-31] MEDS ORDERED: RT-ALBUTEROL SULF 2.5 MG/3 ML PRE-MIX VIAL INH PRN (09:15)
[2022-07-31] MEDS: VANCOMYCIN 1250 MG/NS 250 ML IVPB IV SCH ×4 (10:35→21:41)
[2022-07-31] MEDS ORDERED: LACTATED RINGERS 1,000 ML IV PRN (12:45)
[2022-07-31] MEDS ORDERED: LIDOCAINE/EPI 1%-1:100,000 (XYLOCAINE) 30ML ONE (13:26)
[2022-07-31] MEDS ORDERED: MIDAZOLAM 2 MG/2 ML (VERSED) VIAL ONE (13:37)
[2022-07-31] MEDS ORDERED: PROPOFOL INJECTION 50 ML IV ONE (13:37)
[2022-07-31] MEDS ORDERED: LIDOCAINE/EPI 1%-1:100,000 (XYLOCAINE) 30ML INJ ONE (13:47)
[2022-07-31] MEDS ORDERED: fentaNYL INJ 100 MCG/2 ML AMP ONE (13:54)
--- NOTE | 2022-07-31 14:07 | Progress Note-Post Operative ---
Post-Operative Progess Note Surgeon (s)/Pointer Helper (s) Surgeon SUKUMAR OAKLEY DO Pointer Helper: RYANN Ramirez Pre-Operative Diagnosis necrotic ulcer right foot Post-Operative Diagnosis same pending path Procedure & Operative Findings Date of Procedure 07/31/22 Procedure Performed/Findings Debridement of necrotic ulcer right foot, 3.2 x 2.8 cm down to fascia Anesthesia Type IV sedation by [employer] and ankle block Estimated Blood Loss Estimated blood loss (mL): less than 10ml Specimens/Packing Specimens Removed necrotic tissue - skin, subQ fat Packin SUKUMAR OAKLEY DO Jul 31, 2022 14:07
--- NOTE | 2022-07-31 14:13 | Anesthesia-General Post-Op ---
MAC Patient Condition Mental Status/LOC: Same as Preop Cardiovascular: Satisfactory Nausea/Vomiting: Absent Respiratory: Satisfactory Pain: Controlled Complications: Absent Post Op Complications Complications None Follow Up Care/Instructions Patient Instructions None needed. Anesthesiology Discharge Order Discharge Order Patient is doing well, no complaints, stable vital signs, no apparent adverse anesthesia problems. No complications reported per nursing. SADAF NUNES CRNA Jul 31, 2022 14:13
[2022-07-31] MEDS ORDERED: ONDANSETRON 4 MG/2 ML (SDV) Z0FRAN IVP PRN (14:15)
--- NOTE | 2022-07-31 15:04 | OPERATIVE REPORT ---
DATE OF SERVICE: 07/31/2022 PREOPERATIVE DIAGNOSIS: Necrotic ulcer, right foot. POSTOPERATIVE DIAGNOSIS: Necrotic ulcer, right foot, pending pathology. PROCEDURE: Debridement of necrotic ulcer, right foot, 3.2 x 2.8 cm down to fascia. SURGEON: Nasim Ward DO DOG BARBER: THANH Ramirez. SPECIMENS: Necrotic tissue, skin and subcutaneous fat. BLOOD LOSS: Less than 10 mL. FLUIDS: Per anesthesia. POSTOPERATIVE CONDITION: Stable. INDICATIONS FOR PROCEDURE: The patient is a 31-year-old male who has a nonhealing ulcer with necrotic tissue on the right foot, thought to be possibly infected. FINDINGS: The patient had a necrotic ulcerated area on the right lateral foot, site had been marked prior to surgery and he had some edema in the leg, but did not appear to be any infection. There was no purulent fluid. DESCRIPTION OF PROCEDURE: After informed consent was obtained, the patient was brought to the operating room, he was placed on table in supine position. He was sterilely prepped and draped in normal fashion. I then performed an ankle block blocking the medial and lateral malleolus and then as well as around the necrotic tissue. Then, using Bovie electrocautery, cut out the thickened callus and necrotic tissue of skin and subcutaneous fat down to the fascia. I do not believe I took any fascia or muscle. It all looked like good clean tissue. At this point, obtained hemostasis as well as cautery, washed it and then placed a dressing. The patient tolerated the procedure. Sponge and needle count correct at the end of the case and he was transferred to recovery room in stable condition. Job ID: [id number] DocumentID: [id number] Dictated Date: 07/31/2022 14:07:27 Stand Grinder Date: 07/31/2022 15:02:00 Dictated By: NASIM WARD DO
[2022-08-01 00:09] VITALS: BP 150/82
[2022-08-01 03:58] VITALS: BP 123/77
[2022-08-01 06:03] LABS: BASOPHILS % (AUTO) 1 % (0-10); EOSINOPHILS # (AUTO) 0.2 10^3/uL (0.0-0.3); EOSINOPHILS % (AUTO) 3 % (0-10); HEMATOCRIT 41 % (40-54); HEMOGLOBIN 14.3 g/dL (13.3-17.7); LYMPHOCYTES # (AUTO) 2.6 10^3/uL (1.0-4.0); LYMPHOCYTES % (AUTO) 43 % (12-44); MEAN CORPUSCULAR HEMOGLOBIN 30 pg (25-34); MEAN CORPUSCULAR HGB CONC 35 g/dL (32-36); MEAN CORPUSCULAR VOLUME 86 fL (80-99); MEAN PLATELET VOLUME 10.1 fL (9.0-12.2); MONOCYTES # (AUTO) 0.5 10^3/uL (0.0-1.0); MONOCYTES % (AUTO) 8 % (0-12); NEUTROPHILS # (AUTO) 2.7 10^3/uL (1.8-7.8); NEUTROPHILS % (AUTO) 45 % (42-75); PLATELET COUNT 273 10^3/uL (130-400); WHITE BLOOD COUNT 5.9 10^3/uL (4.3-11.0)
[2022-08-01] MEDS: PIPERACILLIN SODIUM/TAZOBACTAM 4.5 GM in NS (IVPB) 100 ML IV SCH ×2 (06:33→13:38)
[2022-08-01 06:35] LABS: ALBUMIN 3.5 GM/DL (3.2-4.5); POTASSIUM 4.1 MMOL/L (3.6-5.0)
[2022-08-01 06:38] LABS: TOTAL PROTEIN 6.7 GM/DL (6.4-8.2)
[2022-08-01 06:39] LABS: BILIRUBIN,TOTAL 0.7 MG/DL (0.1-1.0)
[2022-08-01 06:41] LABS: CREATININE SERUM 1.18 MG/DL (0.60-1.30)
[2022-08-01 07:30] VITALS: BP 142/77
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
[2022-08-01] MEDS: SENNOSIDES 8.6 MG (SENOKOT) TAB PO SCH (09:32)
[2022-08-01] MEDS: DOCUSATE SODIUM 100 MG (COLACE) CAP PO SCH (09:32)
[2022-08-01] MEDS: ENOXAPARIN 40 MG/0.4 ML (LOVENOX) SYR SC SCH (09:40)
[2022-08-01] MEDS: VANCOMYCIN 1250 MG/NS 250 ML IVPB IV SCH ×2 (10:54)
[2022-08-01 11:28] VITALS: BP 127/72
[2022-08-01] MEDS ORDERED: SULF1TAB38 PO (12:39)
[2022-08-01] MEDS ORDERED: OXC5T PO (12:39)
--- NOTE | 2022-08-01 12:41 | Discharge Summary ---
Discharge Summary Hospital Course Was the Problem List Reviewed?: Yes Problems/Dx: (1) Open wound of plantar aspect of right foot Status: Acute (2) Failure of outpatient treatment Status: Acute (3) Peripheral neuropathy Hospital Course Date of Admission: Jul 30, 2022 at 22:17 Admission Diagnosis : Family Physician/Provider: Moisés Soto MD Date of Discharge: 08/01/22 Discharge Diagnosis: [ ] Hospital Course: Short hospital course after he was admitted placed on broad-spectrum antibiotics for plantar aspect of right foot. Dr. Ward and incision and drainage and patient did very well. Patient was deemed stable for discharge. Labs and Pending Lab Test: Laboratory Tests 08/01/22 05:36: White Blood Count 5.9, Red Blood Count 4.79, Hemoglobin 14.3, Hematocrit 41, Mean Corpuscular Volume 86, Mean Corpuscular Hemoglobin 30, Mean Corpuscular Hemoglobin Concent 35, Red Cell Distribution Width 14.0, Platelet Count 273, Mean Platelet Volume 10.1, Immature Granulocyte % (Auto) 0, Neutrophils (%) (Auto) 45, Lymphocytes (%) (Auto) 43, Monocytes (%) (Auto) 8, Eosinophils (%) (Auto) 3, Basophils (%) (Auto) 1, Neutrophils # (Auto) 2.7, Lymphocytes # (Auto) 2.6, Monocytes # (Auto) 0.5, Eosinophils # (Auto) 0.2, Basophils # (Auto) 0.0, Immature Granulocyte # (Auto) 0.0, Sodium Level 137, Potassium Level 4.1, Chloride Level 105, Carbon Dioxide Level 22, Anion Gap 10, Blood Urea Nitrogen 8 , Creatinine 1.18, Estimat Glomerular Filtration Rate 84, BUN/Creatinine Ratio 7, Glucose Level 89, Calcium Level 9.0, Corrected Calcium 9.4, Total Bilirubin 0.7, Aspartate Amino Transf (AST/SGOT) 15, Alanine Aminotransferase (ALT/SGPT) 31, Alkaline Phosphatase 70, Total Protein 6.7, Albumin 3.5 Microbiology 07/31/22 MRSA Screen - Final, Complete MRSA not isolated 07/30/22 Blood Culture - Preliminary, Resulted No growth Home Meds Active Bactrim Ds Tablet (Sulfamethoxazole/Trimethoprim) 1 Each Tablet 1 Each PO BID Oxyir Tablet (Oxycodone HCl) 5 Mg Tab 5 Mg PO Q6H PRN Assessment/Pt Instructions PCP 3 days Discharge Planning: <30 minutes discharge planning Discharge Physical Examination Vital Signs Vital Signs Date Time Temp Pulse Resp B/P (MAP) Pulse Ox O2 Delivery O2 Flow Rate FiO2 08/01/22 11:28 36.6 83 18 127/72 (90) 97 Room Air 07/31/22 14:20 4.00 General Appearance: No Apparent Distress, WD/WN, Chronically ill Allergies: Coded Allergies: No Known Drug Allergies (Unverified , 10/26/18) Discharge Summary Date of Admission Jul 30, 2022 at 22:17 Date of Discharge Discharge Date: Aug 01, 2022 Admission Diagnosis Assessment: Right foot non-healing ulcer h/o Polysubstance abuse Smoker Plan: Dr Ward consult IV abx Debridement Discharge Diagnosis Assessment: Right foot non-healing ulcer h/o Polysubstance abuse Smoker Plan: Dr Ward consult IV abx Debridement yesterday (1) Open wound of plantar aspect of right foot Status: Acute (2) Failure of outpatient treatment Status: Acute (3) Peripheral neuropathy SANTIAGO NIETO DO Aug 01, 2022 12:41
--- NOTE | 2022-08-01 15:47 | Progress Note - Surgery ---
Subjective Time Seen by a Provider: 13:45 Subjective/Events-last exam Pt seen and examined, no new complaints and asking to go home. Review of Systems Pulmonary: No Dyspnea, No Cough Cardiovascular: No: Chest Pain, Palpitations Focused Exam Lactate Level 07/30/22 21:32: Lactic Acid Level 0.75 Objective Exam Vital Signs Date Time Temp Pulse Resp B/P (MAP) Pulse Ox O2 Delivery O2 Flow Rate FiO2 08/01/22 12:53 79 08/01/22 11:28 36.6 83 18 127/72 (90) 97 Room Air 08/01/22 08:00 97 Room Air 08/01/22 07:58 Room Air 08/01/22 07:30 36.8 76 18 142/77 (98) 96 Room Air 08/01/22 07:00 65 08/01/22 03:58 36.6 80 18 123/77 (92) 98 Room Air 08/01/22 01:00 79 08/01/22 00:09 36.8 76 18 150/82 (104) 97 Room Air 07/31/22 21:25 Room Air 07/31/22 20:00 37.0 80 18 124/76 (92) 98 Room Air 07/31/22 20:00 Room Air 07/31/22 19:00 80 07/31/22 16:00 36.6 18 144/85 (104) Room Air 07/31/22 16:00 36.6 86 18 144/85 (104) 97 Room Air I & O 08/01/22 07:00 Intake Total 2600 ml Output Total 4950 ml Balance -2350 ml Capillary Refill : Less Than 3 Seconds General Appearance: No Apparent Distress, WD/WN Respiratory: Lungs Clear, Normal Breath Sounds Cardiovascular: Regular Rate, Rhythm, No Edema, No Murmur Peripheral Pulses: 2+ Dorsalis Pedis (R), 2+ Left Dors-Pedis (L), 2+ Radial Pulses (R), 2+ Radial Pulses (L) Extremity: Pedal Edema (right foot only), Other (right foot bandaged) Skin: Other (scaling to the lateral right lower leg extending from just superior to the lateral malleolus to the mid-calf) Results Lab Laboratory Tests 08/01/22 05:36: White Blood Count 5.9, Red Blood Count 4.79, Hemoglobin 14.3, Hematocrit 41, Mean Corpuscular Volume 86, Mean Corpuscular Hemoglobin 30, Mean Corpuscular Hemoglobin Concent 35, Red Cell Distribution Width 14.0, Platelet Count 273, Mean Platelet Volume 10.1, Immature Granulocyte % (Auto) 0, Neutrophils (%) (Auto) 45, Lymphocytes (%) (Auto) 43, Monocytes (%) (Auto) 8, Eosinophils (%) (Auto) 3, Basophils (%) (Auto) 1, Neutrophils # (Auto) 2.7, Lymphocytes # (Auto) 2.6, Monocytes # (Auto) 0.5, Eosinophils # (Auto) 0.2, Basophils # (Auto) 0.0, Immature Granulocyte # (Auto) 0.0, Sodium Level 137, Potassium Level 4.1, Chloride Level 105, Carbon Dioxide Level 22, Anion Gap 10, Blood Urea Nitrogen 8, Creatinine 1.18, Estimat Glomerular Filtration Rate 84, BUN/Creatinine Ratio 7, Glucose Level 89, Calcium Level 9.0, Corrected Calcium 9.4, Total Bilirubin 0.7, Aspartate Amino Transf (AST/SGOT) 15, Alanine Aminotransferase (ALT/SGPT) 31, Alkaline Phosphatase 70, Total Protein 6.7, Albumin 3.5 Microbiology 07/31/22 MRSA Screen - Final, Complete MRSA not isolated 07/30/22 Blood Culture - Preliminary, Resulted No growth Assessment/Plan Assessment/Plan Assessment/Plan S/P debridement of Right foot Ulcer Neuropathy and sensation loss Right foot Mild anemia Patient has improvement to his right leg swelling, ok to go home. Needs to follow up so he can get good wound care. SUKUMAR OAKLEY DO Aug 01, 2022 15:47
[2022-08-01 16:00] VITALS: BP 127/72
== END 2022-08-01 16:00 | disposition home or self-care (01) | DRG 571 ==
LOC: EDUNIT# 21:20 → ER 21:22 → 4TH 22:17
PROVIDERS: ADMIT Internal Medicine; ATTEND Internal Medicine
PROC: 0JBR0ZZ Excision of Left Foot Subcutaneous Tissue and Fascia, Open Approach (ICD-10-PCS; principal; 2022-07-31 13:36)
DX: L97.519 Non-pressure chronic ulcer of other part of right foot with unspecified severity (principal); L03.115 Cellulitis of right lower limb; F17.210 Nicotine dependence, cigarettes, uncomplicated; G62.9 Polyneuropathy, unspecified; D64.9 Anemia, unspecified
CPT/HCPCS: 36415; 73630; 73700; 80053; 80306; 81000; 83605; 83735; 85025; 85379; 85610; 85652; 85730; 86141; 87040; 87081; 87088

== ENCOUNTER 2022-09-14 08:38 | Emergency (ER) | payer SELFPAY ==
[~2022-09-14] VITALS: Ht 187 cm; Wt 106.0 kg
[~2022-09-14 08:38] MED LIST changes: +OXC5T PO; +SULF1TAB38 PO
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
[2022-09-14 09:57] LABS: BASOPHILS % (AUTO) 1 % (0-10); EOSINOPHILS # (AUTO) 0.1 10^3/uL (0.0-0.3); EOSINOPHILS % (AUTO) 2 % (0-10); HEMATOCRIT 43 % (40-54); HEMOGLOBIN 14.4 g/dL (13.3-17.7); LYMPHOCYTES # (AUTO) 2.2 10^3/uL (1.0-4.0); LYMPHOCYTES % (AUTO) 30 % (12-44); MEAN CORPUSCULAR HEMOGLOBIN 30 pg (25-34); MEAN CORPUSCULAR HGB CONC 34 g/dL (32-36); MEAN CORPUSCULAR VOLUME 88 fL (80-99); MEAN PLATELET VOLUME 9.5 fL (9.0-12.2); MONOCYTES # (AUTO) 0.6 10^3/uL (0.0-1.0); MONOCYTES % (AUTO) 9 % (0-12); NEUTROPHILS # (AUTO) 4.3 10^3/uL (1.8-7.8); NEUTROPHILS % (AUTO) 59 % (42-75); PLATELET COUNT 289 10^3/uL (130-400); WHITE BLOOD COUNT 7.3 10^3/uL (4.3-11.0)
--- NOTE | 2022-09-14 09:57 | Diagnostic Imaging Report ---
CLINICAL HISTORY: Right foot cellulitis. Recent foreign body removal 2 months ago. COMPARISON: 07/30/2022. TECHNIQUE: 3 views of the right foot. FINDINGS: There is no acute fracture or dislocation of the right foot. Alignment is anatomic. No focal osseous lesions. The subcutaneous air adjacent to the base of the right 5th metatarsal appears more prominent compared to the prior exam. No radiopaque foreign body is seen. IMPRESSION: 1. Increase in subcutaneous air adjacent to the base of the right 5th metatarsal. No radiopaque foreign body. 2. No acute fracture or dislocation in the right foot. No radiographic findings to suggest osteomyelitis. Dictated by: Dictated on workstation # [id number]
[2022-09-14 10:08] LABS: CALCIUM 8.9 MG/DL (8.5-10.1)
[2022-09-14 10:13] LABS: CREATININE SERUM 1.17 MG/DL (0.60-1.30)
[2022-09-14 10:52] LABS: ERYTHROCYTE SEDIMENTATION RATE 4 MM/HR (0-15)
[2022-09-14] MEDS ORDERED: SULF1TAB38 PO (11:12)
[2022-09-14 12:00] VITALS: BP 130/95
== END 2022-09-14 12:06 | disposition home or self-care (01) ==
LOC: EDUNIT# 08:38 → ER 08:40
DX: B34.9 Viral infection, unspecified (principal); R09.81 Nasal congestion; R50.9 Fever, unspecified; L03.115 Cellulitis of right lower limb; L97.519 Non-pressure chronic ulcer of other part of right foot with unspecified severity; F17.210 Nicotine dependence, cigarettes, uncomplicated; Z20.822 Contact with and (suspected) exposure to COVID-19; Z28.310 Unvaccinated for COVID-19
CPT/HCPCS: 36415; 73630; 80048; 83605; 85025; 85652; 87040; 87636

== ENCOUNTER 2022-12-23 21:11 | Inpatient (IN) | payer OTHER ==
[~2022-12-23] VITALS: Ht 188 cm; Wt 106.2 kg
[2022-12-23] MEDS ORDERED: PIPERACILLIN SODIUM/TAZOBACTAM 4.5 GM in NS (IVPB) 100 ML IV ONE (21:30)
[2022-12-23] MEDS: VANCOMYCIN INJECTION 1,000 MG in NS (IVPB) 250 ML IV SCH (21:52)
--- NOTE | 2022-12-23 22:04 | Diagnostic Imaging Report ---
CLINICAL INDICATION: Patient with right lower lateral foot wound worse than approximately two days ago. EXAM: X-ray of the right foot, 3 views. COMPARISON: X-ray of right foot dated 09/14/2022. FINDINGS: There is soft tissue swelling about the ankle and lateral aspect of the foot. There is no soft tissue air or radiodense foreign object. There is no bony erosive or destructive process. There is no acute fracture or dislocation. IMPRESSION: 1: There is no acute fracture or dislocation. 2: There is soft tissue swelling adjacent to the foot, especially laterally and in the ankle region. There is no bony erosive or destructive process. Dictated by: Dictated on workstation # [id number]
[2022-12-23 22:06] LABS: BASOPHILS % (AUTO) 0 % (0-10); EOSINOPHILS # (AUTO) 0.1 10^3/uL (0.0-0.3); EOSINOPHILS % (AUTO) 1 % (0-10); HEMATOCRIT 39 % (40-54); LYMPHOCYTES # (AUTO) 2.1 10^3/uL (1.0-4.0); LYMPHOCYTES % (AUTO) 20 % (12-44); MEAN CORPUSCULAR HEMOGLOBIN 30 pg (25-34); MEAN CORPUSCULAR HGB CONC 34 g/dL (32-36); MEAN CORPUSCULAR VOLUME 88 fL (80-99); MEAN PLATELET VOLUME 10.7 fL (9.0-12.2); MONOCYTES # (AUTO) 0.9 10^3/uL (0.0-1.0); MONOCYTES % (AUTO) 9 % (0-12); NEUTROPHILS # (AUTO) 7.1 10^3/uL (1.8-7.8); NEUTROPHILS % (AUTO) 70 % (42-75); PLATELET COUNT 230 10^3/uL (130-400); WHITE BLOOD COUNT 10.2 10^3/uL (4.3-11.0)
[2022-12-23 22:16] LABS: PROTHROMBIN TIME PATIENT 13.3 SEC (12.2-14.7)
[2022-12-23 22:17] LABS: CHLORIDE 104 MMOL/L (98-107); POTASSIUM 3.4 MMOL/L (3.6-5.0); SODIUM 139 MMOL/L (135-145)
[2022-12-23 22:18] LABS: CALCIUM 9.1 MG/DL (8.5-10.1)
[2022-12-23 22:20] LABS: GLUCOSE 100 MG/DL (70-105); TOTAL PROTEIN 7.5 GM/DL (6.4-8.2)
[2022-12-23 22:21] LABS: BILIRUBIN,TOTAL 1.7 MG/DL (0.1-1.0); CARBON DIOXIDE 27 MMOL/L (21-32)
[2022-12-23 22:23] LABS: ALKALINE PHOSPHATASE 71 U/L (40-136); CREATININE SERUM 1.29 MG/DL (0.60-1.30); GFR ESTIMATED 75
[2022-12-23 22:24] LABS: BUN/CREATININE RATIO 9
[2022-12-23 22:26] LABS: ALANINE AMINOTRANSFERASE 39 U/L (0-55); CREATINE KINASE 581 U/L (30-200)
[2022-12-23 22:34] LABS: ERYTHROCYTE SEDIMENTATION RATE 13 MM/HR (0-15)
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
[2022-12-23 23:43] VITALS: BP 124/70
[2022-12-23] MEDS ORDERED: LACTATED RINGERS 1,000 ML IV ONE (23:48)
[2022-12-24] MEDS ORDERED: ONDANSETRON 4 MG/2 ML (SDV) Z0FRAN IV PRN (00:30)
[2022-12-24] MEDS ORDERED: ACETAMINOPHEN 500 MG TAB (TYLENOL) PO PRN (00:30)
[2022-12-24] MEDS ORDERED: IBUPROFEN 800 MG (MOTRIN) TAB PO PRN (00:30)
[2022-12-24] MEDS ORDERED: fentaNYL INJ 100 MCG/2 ML AMP IV PRN (00:30)
[2022-12-24] MEDS ORDERED: KETOROLAC 30 MG/ML VIAL IV PRN (00:30)
[2022-12-24] MEDS: LACTATED RINGERS 1,000 ML IV SCH ×2 (00:40→09:58)
[2022-12-24 03:23] VITALS: BP 124/66
[2022-12-24] MEDS ORDERED: PIPERACILLIN SODIUM/TAZOBACTAM 4.5 GM in NS (IVPB) 100 ML IV SCH (04:00)
[2022-12-24 05:38] LABS: BASOPHILS % (AUTO) 0 % (0-10); EOSINOPHILS # (AUTO) 0.1 10^3/uL (0.0-0.3); EOSINOPHILS % (AUTO) 1 % (0-10); HEMATOCRIT 37 % (40-54); HEMOGLOBIN 12.6 g/dL (13.3-17.7); LYMPHOCYTES % (AUTO) 24 % (12-44); MEAN CORPUSCULAR HEMOGLOBIN 29 pg (25-34); MEAN CORPUSCULAR HGB CONC 34 g/dL (32-36); MEAN CORPUSCULAR VOLUME 86 fL (80-99); MEAN PLATELET VOLUME 10.3 fL (9.0-12.2); MONOCYTES # (AUTO) 0.8 10^3/uL (0.0-1.0); MONOCYTES % (AUTO) 10 % (0-12); NEUTROPHILS # (AUTO) 5.5 10^3/uL (1.8-7.8); NEUTROPHILS % (AUTO) 65 % (42-75); PLATELET COUNT 219 10^3/uL (130-400); WHITE BLOOD COUNT 8.4 10^3/uL (4.3-11.0)
[2022-12-24 05:55] LABS: ALBUMIN 3.5 GM/DL (3.2-4.5)
[2022-12-24 05:56] LABS: POTASSIUM 3.2 MMOL/L (3.6-5.0)
[2022-12-24 05:57] LABS: CALCIUM 8.6 MG/DL (8.5-10.1)
[2022-12-24 05:58] LABS: TOTAL PROTEIN 6.5 GM/DL (6.4-8.2)
[2022-12-24 06:00] LABS: BILIRUBIN,TOTAL 1.4 MG/DL (0.1-1.0)
[2022-12-24 06:02] LABS: CREATININE SERUM 1.12 MG/DL (0.60-1.30)
[2022-12-24 08:12] VITALS: BP 113/75
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
[2022-12-24] MEDS ORDERED: VANCOMYCIN 1500MG/300ML PREMIX 300 ML IV SCH (10:00)
[2022-12-24] MEDS ORDERED: GABA-486 PO (11:23)
[2022-12-24] MEDS ORDERED: ACHD5005 PO (11:23)
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
== END 2022-12-24 11:57 | disposition home or self-care (01) | DRG 603 ==
LOC: EDUNIT# 21:11 → ER 21:13 → 4TH 23:12
PROVIDERS: ADMIT Internal Medicine; ATTEND Internal Medicine
DX: L03.115 Cellulitis of right lower limb (principal); L97.519 Non-pressure chronic ulcer of other part of right foot with unspecified severity; G62.9 Polyneuropathy, unspecified; F19.10 Other psychoactive substance abuse, uncomplicated; F17.210 Nicotine dependence, cigarettes, uncomplicated; F15.90 Other stimulant use, unspecified, uncomplicated
CPT/HCPCS: 36415; 73630; 80053; 80320; 82550; 82553; 83605; 83874; 84484; 85025; 85610; 85652; 85730; 86141; 87040; 87070; 87077; 87205

== ENCOUNTER → 2022-12-27 | Outpatient (CLI) | payer OTHER ==
[~2022-12-27] MED LIST changes: +ACHD5005 PO; +GABA-486 PO
== END ==
LOC: WOUNDCARE 10:48
PROVIDERS: ATTEND Family Medicine
DX: I96 Gangrene, not elsewhere classified (principal); L97.512 Non-pressure chronic ulcer of other part of right foot with fat layer exposed; T43.655A Adverse effect of methamphetamines, initial encounter; T65.292A Toxic effect of other tobacco and nicotine, intentional self-harm, initial encounter; B95.62 Methicillin resistant Staphylococcus aureus infection as the cause of diseases classified elsewhere; B96.5 Pseudomonas (aeruginosa) (mallei) (pseudomallei) as the cause of diseases classified elsewhere; L03.115 Cellulitis of right lower limb; G90.09 Other idiopathic peripheral autonomic neuropathy; R73.9 Hyperglycemia, unspecified; E55.9 Vitamin D deficiency, unspecified
CPT/HCPCS: 11042; 82306; 83036; 84134; A6260; G0463; 36415

== ENCOUNTER → 2023-01-05 | Outpatient (CLI) | payer OTHER | LOC: WOUNDCARE 14:19 | PROVIDERS: ATTEND Family Medicine | DX: L97.512 Non-pressure chronic ulcer of other part of right foot with fat layer exposed (principal); T43.655A Adverse effect of methamphetamines, initial encounter; T65.292A Toxic effect of other tobacco and nicotine, intentional self-harm, initial encounter; B95.62 Methicillin resistant Staphylococcus aureus infection as the cause of diseases classified elsewhere; B96.5 Pseudomonas (aeruginosa) (mallei) (pseudomallei) as the cause of diseases classified elsewhere; L03.115 Cellulitis of right lower limb; G90.09 Other idiopathic peripheral autonomic neuropathy; R73.9 Hyperglycemia, unspecified; E55.9 Vitamin D deficiency, unspecified; I96 Gangrene, not elsewhere classified | CPT/HCPCS: 11042; A6197; G0463 ==

== ENCOUNTER → 2023-01-05 | Outpatient (CLI) | payer OTHER ==
[~2023-01-05] MED LIST changes: +GADOTERATE 0.5 MMOL/ML (CLARISCAN) 20 ML VIAL IV ONE
--- NOTE | 2023-01-05 16:28 | Diagnostic Imaging Report ---
PROCEDURE: MR imaging right lower extremity with and without contrast. TECHNIQUE: Multiplanar, multisequence pre and post contrast-enhanced MR imaging of the right lower extremity was accomplished. INDICATION: Nonpressure ulcer of the right foot. COMPARISON: Radiographs from 12/23/2022. FINDINGS: There is a soft tissue ulceration at the plantar aspect of the lateral foot measuring about 2.4 x 1.9 cm in size. There is minimal underlying bone marrow edema and enhancement of the fifth metatarsal base with findings suggestive of subtle T1-weighted marrow replacement (image 23 series 6). No significant cortical erosion of the bone is seen. No acute fracture is seen. Alignment is normal. The Lisfranc ligament appears intact. Visible flexor and extensor tendons are intact. No rim-enhancing soft tissue fluid collections are seen. There is soft tissue enhancement about the ulceration. There is mild generalized muscular atrophy and edema which is likely neurogenic. IMPRESSION: 1. Soft tissue ulceration at the plantar lateral right foot with findings of early osteomyelitis of the fifth metatarsal base. 2. Soft tissue infection of the lateral right foot with no rim-enhancing fluid collection seen. Dictated by: Dictated on workstation # [id number]
== END ==
LOC: RAD 13:23
PROVIDERS: ATTEND Family Medicine
DX: L97.512 Non-pressure chronic ulcer of other part of right foot with fat layer exposed (principal); T43.655A Adverse effect of methamphetamines, initial encounter; T65.292A Toxic effect of other tobacco and nicotine, intentional self-harm, initial encounter; B95.62 Methicillin resistant Staphylococcus aureus infection as the cause of diseases classified elsewhere; B96.5 Pseudomonas (aeruginosa) (mallei) (pseudomallei) as the cause of diseases classified elsewhere; L03.115 Cellulitis of right lower limb; G90.09 Other idiopathic peripheral autonomic neuropathy; E55.9 Vitamin D deficiency, unspecified; R73.9 Hyperglycemia, unspecified
CPT/HCPCS: 73720

== ENCOUNTER → 2023-01-10 | Outpatient (CLI) | payer SELFPAY ==
[~2023-01-10] MED LIST changes: -GADOTERATE 0.5 MMOL/ML (CLARISCAN) 20 ML VIAL IV ONE
== END ==
LOC: WOUNDCARE 13:24
PROVIDERS: ATTEND Family Medicine
DX: E55.9 Vitamin D deficiency, unspecified (principal); L97.512 Non-pressure chronic ulcer of other part of right foot with fat layer exposed; T43.655A Adverse effect of methamphetamines, initial encounter; T65.292A Toxic effect of other tobacco and nicotine, intentional self-harm, initial encounter; B95.62 Methicillin resistant Staphylococcus aureus infection as the cause of diseases classified elsewhere; B96.5 Pseudomonas (aeruginosa) (mallei) (pseudomallei) as the cause of diseases classified elsewhere; G90.09 Other idiopathic peripheral autonomic neuropathy; M86.171 Other acute osteomyelitis, right ankle and foot; Z91.198 Patient's noncompliance with other medical treatment and regimen for other reason
CPT/HCPCS: 11042; G0463; L4360

== ENCOUNTER → 2023-01-17 | Outpatient (CLI) | payer OTHER | LOC: WOUNDCARE 13:00 | PROVIDERS: ATTEND Family Medicine | DX: L97.512 Non-pressure chronic ulcer of other part of right foot with fat layer exposed (principal); T43.655A Adverse effect of methamphetamines, initial encounter; T65.292A Toxic effect of other tobacco and nicotine, intentional self-harm, initial encounter; B95.62 Methicillin resistant Staphylococcus aureus infection as the cause of diseases classified elsewhere; B96.5 Pseudomonas (aeruginosa) (mallei) (pseudomallei) as the cause of diseases classified elsewhere; G90.09 Other idiopathic peripheral autonomic neuropathy; R73.9 Hyperglycemia, unspecified; E55.9 Vitamin D deficiency, unspecified; M86.171 Other acute osteomyelitis, right ankle and foot; Z91.198 Patient's noncompliance with other medical treatment and regimen for other reason; I96 Gangrene, not elsewhere classified | CPT/HCPCS: 11042; G0463 ==

== ENCOUNTER → 2023-02-02 | Outpatient (CLI) | payer OTHER | LOC: WOUNDCARE 15:00 | PROVIDERS: ATTEND Family Medicine | DX: I96 Gangrene, not elsewhere classified (principal); L97.512 Non-pressure chronic ulcer of other part of right foot with fat layer exposed; T43.655A Adverse effect of methamphetamines, initial encounter; T65.292A Toxic effect of other tobacco and nicotine, intentional self-harm, initial encounter; B95.62 Methicillin resistant Staphylococcus aureus infection as the cause of diseases classified elsewhere; B96.5 Pseudomonas (aeruginosa) (mallei) (pseudomallei) as the cause of diseases classified elsewhere; G90.09 Other idiopathic peripheral autonomic neuropathy; R73.9 Hyperglycemia, unspecified; E55.9 Vitamin D deficiency, unspecified; M86.171 Other acute osteomyelitis, right ankle and foot; Z91.198 Patient's noncompliance with other medical treatment and regimen for other reason | CPT/HCPCS: 11042; G0463 ==

== ENCOUNTER 2023-03-23 03:09 | Emergency (ER) | payer SELFPAY ==
[2023-03-23] MEDS ORDERED: ONDANSETRON 4 MG ORAL DISSOLVE TABLET PO STA (03:36)
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
[2023-03-23] MEDS ORDERED: KETOROLAC INJ 30 MG/ML VIAL IM ONE (03:45)
[2023-03-23] MEDS ORDERED: ACETAMINOPHEN 500 MG TABLET PO ONE (03:45)
[2023-03-23 04:31] VITALS: BP 128/84
== END 2023-03-23 04:43 | disposition home or self-care (01) ==
LOC: EDUNIT# 03:09 → ER 03:12
DX: U07.1 COVID-19 (principal); R51.9 Headache, unspecified; R50.9 Fever, unspecified; R05.9 Cough, unspecified; R06.00 Dyspnea, unspecified; R11.0 Nausea; M54.50 Low back pain, unspecified; F17.210 Nicotine dependence, cigarettes, uncomplicated; F17.290 Nicotine dependence, other tobacco product, uncomplicated; Z28.310 Unvaccinated for COVID-19
CPT/HCPCS: 87636; 99284